=== PATIENT | female | born 1980 | race Caucasian/White ===

== ENCOUNTER 2017-04-02 18:08 | Emergency (ER) | payer OTHER ==
[~2017-04-02] VITALS: Ht 170.2 cm; Wt 134.9 kg
[~2017-04-02 18:08] MED LIST: BENADRYL25 MG PO; DOCUSATE SODIU100 MG PO; ENDOCET 5-3251 EACH PO; FERROUS SULFAT325 MG PO; FLEXERIL5 MG PO; IBUPROFEN800 MG PO; IRON325 M1 PO; NAPROSYN500 MG PO; NO HOME MED; PRENATAL + DHA1 EAC1 PO; RESCUE INHALER; TUMS500 MG PO; TYLENOL COLD M1 EAC1 PO
[2017-04-02] MEDS ORDERED: NAPROSYN500 MG PO (18:53)
[2017-04-02 19:11] VITALS: BP 132/90
== END 2017-04-02 19:12 | disposition home or self-care (01) ==
LOC: EME 18:08
DX: S93.602A Unspecified sprain of left foot, initial encounter (principal); X50.1XXA Overexertion from prolonged static or awkward postures, initial encounter
CPT/HCPCS: 73630; 99281; 99284

== ENCOUNTER 2017-12-21 07:27 | Inpatient (IN) | payer OTHER ==
[~2017-12-21] VITALS: Ht 170.2 cm; Wt 135.7 kg
[~2017-12-21 07:27] MED LIST changes: +PROAIR HFA8.5 GM IH; -RESCUE INHALER
[2017-12-21 10:19] LABS: HEMATOCRIT 35.1 % (36.0-46.0); HEMOGLOBIN 11.9 G/DL (11.9-15.5); MCH 30.7 PG (29.0-34.0); MCHC 33.9 G/DL (30.0-36.0); MCV 90.7 FL (83-99); PLATELET COUNT 249 K/uL (156-360); RBC DIS.WIDTH-CV 13.4 % (11.8-14.6); RBC DIS.WIDTH-SD 44.4 % (39-53); RED BLOOD COUNT 3.87 M/uL (3.80-5.20); WHITE BLOOD COUNT 12.1 K/uL (4.1-10.2)
[2017-12-21 10:25] LABS: ALBUMIN 4.1 g/dL (3.2-4.8)
[2017-12-21 10:26] LABS: CHLORIDE 110 mEq/L (99-109); POTASSIUM 3.5 mEq/L (3.7-5.4); SODIUM 138 mEq/L (136-147)
[2017-12-21 10:28] LABS: GLUCOSE 97 mg/dL (70-99); TOTAL PROTEIN 6.9 g/dL (6.4-8.3)
[2017-12-21 10:30] LABS: TOTAL BILIRUBIN 0.5 mg/dL (0.0-1.0)
[2017-12-21 10:31] LABS: ALKALINE PHOSPHATASE 47 IU/L (3-129)
[2017-12-21 10:32] LABS: CREATININE 0.6 mg/dL (0.6-1.3); GFR ESTIMATE (CALCULATED) > 59 mL/min/
[2017-12-21 10:33] LABS: AST (GOT) 20 IU/L (2-34); UREA NITROGEN (BUN) 12 mg/dL (9-23)
[2017-12-21 10:35] LABS: ALT (GPT) 22 IU/L (3-49)
[2017-12-21 15:10] VITALS: BP 122/74
[2017-12-21 20:03] VITALS: BP 115/58
[2017-12-21 23:19] VITALS: BP 105/57
[2017-12-22 04:35] VITALS: BP 114/60
[2017-12-22 07:42] VITALS: BP 112/58
[2017-12-22 12:09] VITALS: BP 108/53
[2017-12-22] MEDS ORDERED: FIORICET 50-301 EAC1 PO (12:42)
[2017-12-22] MEDS ORDERED: ZYRTEC10 M2 PO (12:42)
[2017-12-22] MEDS ORDERED: ONE DAILY COMP1 EACH PO (12:44)
[2017-12-22 15:22] VITALS: BP 101/57
[2017-12-23 00:11] VITALS: BP 128/60
[2017-12-23 08:59] VITALS: BP 114/55
[2017-12-23] MEDS ORDERED: ENDOCET 5-3251 EACH PO (09:06)
[2017-12-23] MEDS ORDERED: ASPIR-TRIN325 M1 PO (09:08)
[2017-12-23 17:15] VITALS: BP 122/64
[2017-12-23 23:38] VITALS: BP 101/58
[2017-12-24 07:15] VITALS: BP 124/68
== END 2017-12-24 17:47 | disposition home health service (06) | DRG 494 ==
LOC: EME 07:27 → SDC 10:58 → 2SOUTH 13:42 → 3EAST 13:42 → ENRESERV 13:44 → 3EAST 15:00
PROVIDERS: Orthopaedic Surgery
PROC: 0QSJ04Z Reposition Right Fibula with Internal Fixation Device, Open Approach (ICD-10-PCS; principal; 2017-12-21)
PROC: 0QSG04Z Reposition Right Tibia with Internal Fixation Device, Open Approach (ICD-10-PCS; principal; 2017-12-21)
DX: S82.851A Displaced trimalleolar fracture of right lower leg, initial encounter for closed fracture (principal); M21.00 Valgus deformity, not elsewhere classified, unspecified site; J45.909 Unspecified asthma, uncomplicated; K21.9 Gastro-esophageal reflux disease without esophagitis; W18.2XXA Fall in (into) shower or empty bathtub, initial encounter; Y93.E1 Activity, personal bathing and showering; Z90.710 Acquired absence of both cervix and uterus
CPT/HCPCS: 73600; 73610; 76000; 80053; 85027; 99281; 99285; C1713; J0131; J0330; J1100; J1170; J1650; J1885; J2250; J2405; J2795; J3010; J7050